=== PATIENT | male | born 2005 | race African-American/Black ===

== ENCOUNTER 2023-05-02 16:18 | Emergency (ER) | payer OTHER, SELFPAY ==
--- NOTE | 2023-05-02 16:27 | ED.ABDPAIN ---
HPI - Abdominal Pain General Chief Complaint: Abdominal Pain Stated Complaint: HERNIA PAIN Time Seen by Provider: 05/02/23 16:27 Source: patient Mode of arrival: ambulatory Limitations: no limitations History of Present Illness HPI narrative: Tosin is a 17-year-old male patient presenting to the clinic today with complaints of right inguinal hernia pain. He he is requesting a refill on his tramadol pain medication. Reports that his testicle pain started on Thursday of last week and he was seen in urgent care and diagnosed with an inguinal hernia. They sent him home with tramadol for pain at that time. He reports he is out of the tramadol and he is still having quite a bit of testicular pain. Rates the pain currently a 11/16. States that initially started in the right testicle by on Thursday he began having left testicle pain as well. He denies any urinary symptoms. He denies any fever or chills. Related Data Home Medications Medication Instructions Recorded Confirmed ibuprofen 800 mg tablet mg 05/02/23 tramadol 50 mg tablet mg 05/02/23 Allergies Allergy/AdvReac Type Severity Reaction Status Date / Time No Known Allergies Allergy Verified 05/02/23 16:26 Review of Systems Review of Systems: Pertinent positives per HPI. Patient denies any fever, chills, rash, headache, visual changes, dizziness, cough, runny nose, sore throat, shortness of breath, chest pain, palpitations, nausea, vomiting, diarrhea, constipation, abdominal pain, or any urinary issues. PMFSH Comments At the time of my signature, I reviewed and agree with the nursing past medical, surgical, social, and family history. There is no relevant family history pertinent to the patient complaint. Exam Narrative: General: Well-developed, well nourished, in no apparent distress Head: Normocephalic, atraumatic. Cardio: Regular rate and rhythm, s1 and s2 normal, no murmur appreciated. Resp: Clear to auscultation bilaterally, no rhonchi, rales, wheezing or rubs. Musculoskeletal: No deformity, non-tender to palpation, grossly normal range of motion, muscle strength strong and equal in BLE. SLT negative, patellar reflexes 2/4 bilaterally, negative foot drop, normal gait and station : Circumcised male without corneal adhesions, bilateral testicular pain, no obvious inguinal hernia palpable bilaterally when patient bears down/cough, no palpable mass or visible lesion to the scrotum Course Course Emergency Course: Portions of this record may have been created with voice recognition software. Level of Care: Express Care Visit Vital Signs Vital signs: Vital signs reviewed MDM - Abdominal Pain MDM Narrative Medical decision making narrative: At the time of visit patient is resting comfortably on the exam table. Patient appears to be nontoxic. Plan: Patient has testicular pain. Patient is rating pain 9/10. Patient should be ruled out for testicular torsion or incarcerated hernia. Recommend transfer to the ER and he agrees. Contacted Leonel at [facility] and she accepts patient for transfer. Supportive measures were discussed with the patient and they voiced understanding discharge instructions and agrees to treatment plan. Return precautions reviewed Differential Diagnosis Differential diagnosis: Likely abdominal pain and other (Inguinal hernia, sexually transmitted infection, epididymitis, cystocele, incarcerated hernia, testicular mass) Discharge Plan Discharge Clinical Impression: Pain in both testicles Patient Disposition: Acute Care Hospital Condition: Stable Prescriptions: No Action ibuprofen 800 mg tablet tramadol 50 mg tablet Follow-up/Referrals: PHYSICIAN,ENG[employer]ING [employer]NA[employer] [Primary Care Provider] - Time of Disposition: 16:40 Quality NIHSS Nursing Documentation ED NIHSS nursing documentation: reviewed/agree
[2023-05-02 16:31] VITALS: BP 112/90; PULSE 85; RESP 16; TEMP 36.8; O2SAT 100
== END 2023-05-02 16:43 | disposition short-term general hospital (02) ==
PROVIDERS: Emergency Provider Nurse Practitioner Family
DX: N50.812 Left testicular pain (principal); N50.811 Right testicular pain
CPT/HCPCS: 99212; G0463